=== PATIENT | male | born 1940 | race Caucasian/White ===

== ENCOUNTER 2016-08-04 08:00 | Outpatient (CLI) | payer MEDICARE, BC ==
[2016-08-04] MEDS ORDERED: BYSTOLIC5 MG PO (10:30)
[2016-08-04] MEDS ORDERED: CELEXA20 MG PO (10:30)
[2016-08-04] MEDS ORDERED: PLAVIX75 MG PO (10:31)
[2016-08-04] MEDS ORDERED: ISOSORBIDE MONO60 M1 PO (10:31)
[2016-08-04] MEDS ORDERED: LANTUS INSULIN10 ML SC (10:32)
[2016-08-04] MEDS ORDERED: NOVOLOG100 U/M1 SC (10:32)
[2016-08-04] MEDS ORDERED: SYNTHROID75 MCG PO (10:32)
[2016-08-04] MEDS ORDERED: NITROQUICK0.4 MG SL (10:33)
[2016-08-04] MEDS ORDERED: COZAAR50 MG PO (10:33)
[2016-08-04] MEDS ORDERED: RANEXA1000 MG PO (10:33)
[2016-08-04] MEDS ORDERED: CENTRUM MEN'S1 EACH PO (10:34)
[2016-08-04] MEDS ORDERED: CRESTOR20 MG PO (10:34)
[2016-08-04] MEDS ORDERED: ASPIRIN325 MG PO (10:34)
== END 2016-08-04 23:59 | disposition home or self-care (01) ==
LOC: D.PAN 08:00 → D.OPS 08-05 09:40 → EDSTATUS 08-05 09:40 → D.SDCHOLD 08-05 09:40 → D.PAN 08-05 09:40 → D.SDCHOLD 08-05 10:00 → D.OPS 08-05 10:30 → D.SDCHOLD 08-05 10:30 → D.PAN 08-17 09:40 → D.SDCHOLD 08-17 09:40 → EDSTATUS 08-17 09:40
DX: K95.09 Other complications of gastric band procedure (principal); Z01.812 Encounter for preprocedural laboratory examination

== ENCOUNTER 2016-08-17 06:02 | Inpatient (IN) | payer MEDICARE, BC ==
[~2016-08-17] VITALS: Ht 177.8 cm; Wt 114.8 kg
[2016-08-17] VITALS (11 sets, daily range): BP systolic 98–144; BP diastolic 47–65; Ht 177.8 cm; Wt 114.8 kg
--- NOTE | ~2016-08-17 | CN ---
PATIENT NAME:LIBERTY BIRMINGHAM JR MEDICAL RECORD: [id number] : 40 LOCATION:[facility] ADMIT DATE: 08/17/16 ACCOUNT: [id number] CONSULTING PHYSICIAN: LOW AKINS MD REFERRING PHYSICIAN: BRAD LIMA MD DATE OF CONSULTATION: 08/17/2016 Cardiology Consultation ADMITTING DIAGNOSES: 1. Coronary artery disease. 2. Status post coronary artery bypass graft surgery. 3. Sick sinus syndrome. 4. Status post pacemaker. 5. Mitral valve replacement. 6. Chest pain. 7. Preop evaluation. HISTORY OF PRESENT ILLNESS: This is a gentleman who is followed by scale mechanic in [place], who is here for lap band removal surgery, has been having chest pain; however, there is no change in the pattern. He does take nitro on a daily basis, approximately 4, there is no change in his pattern as well. His last cardiac catheterization was in January, he was told he had 1 close graft with wide patency of the other 3 grafts. His chest pain was felt to be esophageal in nature. His chest pain is different than his previous angina prior to his bypass surgery and the relief with nitro is different. He was told that the esophageal spasm is getting relieved with nitro; however, he takes more of them now. He does not have chest pain with exertion. He has chest pain when he lies down at night, relief with antacids or the sublingual nitro. His EKG is unchanged. PHYSICAL EXAMINATION: GENERAL APPEARANCE: Well-nourished, well-developed, appears stated age. Level of distress, comfortable. PSYCHIATRIC: Mental status, alert, normal affect. Orientation, oriented to time, place and person. EYES: Lids and conjunctiva, noninjected. No discharge, no pallor. ENT: Lips, teeth, gums, normal dentition. Oropharynx, no cyanosis, no pallor. NECK: Carotid arteries, bilateral normal upstroke, no bruits, no thrills. JUGULAR VEINS: No jugular venous pressure or distention. CERVICAL LYMPH NODES: Nontender, nonenlarged. THYROID: Not enlarged. Nontender. No nodules. LUNGS: Respiratory effort, unlabored. CHEST: Normal curvature. No thoracic deformity. No chest wall tenderness. Percussion, resonant. Auscultation, clear. No wheezes, no rales, no rhonchi. CARDIOVASCULAR: Precordial exam, nondisplaced. No heaves or pericardial thrills. Rate and rhythm, regular. Heart sounds, normal S1, normal S2. No S3, no gallop, no rub. Systolic murmur, not heard. Diastolic murmur, not heard. EXTREMITIES: No cyanosis, no edema. Peripheral pulses, full and equal in all extremities, except as noted. No bruits appreciated. ABDOMEN: Soft, nondistended. Normal aorta. No bruit. Nontender. No masses. Liver, nontender, no hepatomegaly. Spleen, nontender, no splenomegaly. MUSCULOSKELETAL: No joint tenderness. No joint swelling. No erythema. NEUROLOGICAL: Normal gait, normal strength, normal tone. SKIN: Warm and dry. CONSULT REPORT [id number] LIBERTY BIRMINGHAM JR REVIEW OF SYSTEMS: The patient reports easy bruising but reports no swollen glands. The patient reports no fever, no night sweats, no significant weight gain, no significant weight loss. No significant exercise tolerance. The patient reports no dry eyes, no irritation, no vision change. Patient reports no difficulty hearing and no ear pain. Patient reports no frequent nose bleeds or nose and sinus problems. Patient reports on arm pain on exertion. No shortness of breath while lying down. No history of heart murmur. Patient reports no cough, no wheezing or coughing up blood. Patient reports no abdominal pain, no vomiting. Normal appetite. No diarrhea and not vomiting blood. No nausea and no constipation. Patient reports no incontinence. No difficulty urinating. No hematuria. No increased frequency. Patient reports no muscle aches. No weakness, no arthralgias, no back pain. No swelling of the extremities. Patient reports no abnormal mole, no jaundice, no rashes. Reports no loss of consciousness. No weakness and no numbness. No seizures, dizziness, or headaches. The patient reports no depression, no sleep disturbance, feeling safe in a relationship and no alcohol abuse. Patient reports on fatigue. Reports no runny nose or sinus pressure. No itching, no hives, and no frequent sneezing. OVERALL IMPRESSION: Chest pain, it is more compatible gastroesophageal reflux disease, not compatible with his previous angina, stable pattern since his catheterization in January when no intervention was needed. At this time, I think he is relatively low risk for surgery. Proceed with surgery with no other cardiovascular workup necessary. TRANSINT:[id number] Voice Confirmation ID: [id number] DOCUMENT ID: [id number] LOW AKINS MD CC: [id number] DICTATION DATE: 08/17/16945 CORN MILLER: 08/17/161915 ADM IN [place] [address] [place] [address]
[~2016-08-17 06:02] MED LIST: ASPIRIN325 MG PO; BYSTOLIC5 MG PO; CELEXA20 MG PO; CENTRUM MEN'S1 EACH PO; COZAAR50 MG PO; CRESTOR20 MG PO; ISOSORBIDE MONO60 M1 PO; LANTUS INSULIN10 ML SC; NITROQUICK0.4 MG SL; NOVOLOG100 U/M1 SC; PLAVIX75 MG PO; RANEXA1000 MG PO; SYNTHROID75 MCG PO
[2016-08-17 08:04] LABS: BASOPHILS 0.3 % (0-2); EOSINOPHILS 4.2 % (0-7); HEMATOCRIT 38.9 % (42.0-54.0); HEMOGLOBIN 12.6 g/dL (13.5-17.5); IMMATURE GRANULOCYTES 0.4 % (0-5); LYMPHOCYTES 20.2 % (15-50); MCH 31.5 pg (26.0-34.0); MCHC 32.4 g/dL (31.0-37.0); MCV 97.3 fL (80.0-100.0); MEAN PLATELET VOLUME 9.8 fL (7.4-10.4); MONOCYTES 10.4 % (2-11); NEUTROPHILS 64.5 % (40-80); PLATELET COUNT 157 10x3/uL (130-400); RDW 13.5 % (11.5-14.5); WBC 7.7 10x3/uL (4.8-10.8)
[2016-08-17 08:14] LABS: ANION GAP 14.5 mmol/L (8-16); APTT 29.4 SECONDS (22.8-39.4); CALCIUM 9.1 mg/dL (8.5-10.1); CARBON DIOXIDE 22.9 mmol/L (21.0-32.0); CREATININE - SERUM 2.7 mg/dL (0.6-1.3); INR 1.06 (0.85-1.17); POTASSIUM - SERUM 5.4 mmol/L (3.5-5.1); PROTIME 13.7 SECONDS (11.6-15.0)
--- NOTE | 2016-08-17 11:48 | NUR ---
FSBS 128MG/DL
[2016-08-17] MEDS ORDERED: HYDROCODON-ACE1 EAC7 PO (21:14)
--- NOTE | 2016-08-17 22:45 | NUR ---
REC'D PATIENT LYING IN BED. ALERT AND ORIENTED X4. DENIED PAIN AT THIS TIME. DENIED FURTHER NEEDS AT THIS TIME. INSTRUCTED HIM THAT HE HAD TO GET UP TO WALK BEFORE BED. VERBALIZED UNDERSTANDING. WILL CONT TO MONITOR. WILL ADMIN PM MEDS PRESCRIBED. INSTRUCTED TO CALL IF NEEDED ANYTHING. BED LOW, LOCKED, CALL LIGHT IN REACH.
--- NOTE | 2016-08-18 02:00 | NUR ---
PT IN BED WITH NO DISTRESS. RESPIRATIONS EVEN AND UNLABORED. SIDE RAILS X 2. BED LOW. CALL LIGHT IN REACH.
--- NOTE | 2016-08-18 03:25 | NUR ---
PATIENT IS RESTING IN BED. NO DISTRESS NOTED. INSTRUCTED TO CALL IF NEEDED ANYTHING. BED LOW, LOCKED CALL LIGHT IN REACH. WILL CONT TO MONITOR.
[2016-08-18 04:00] VITALS: BP 117/48
[2016-08-18 05:07] LABS: BASOPHILS 0.1 % (0-2); EOSINOPHILS 2.7 % (0-7); HEMATOCRIT 38.4 % (42.0-54.0); HEMOGLOBIN 12.5 g/dL (13.5-17.5); IMMATURE GRANULOCYTES 0.3 % (0-5); LYMPHOCYTES 9.6 % (15-50); MCH 31.7 pg (26.0-34.0); MCHC 32.6 g/dL (31.0-37.0); MCV 97.5 fL (80.0-100.0); MEAN PLATELET VOLUME 9.7 fL (7.4-10.4); MONOCYTES 6.9 % (2-11); NEUTROPHILS 80.4 % (40-80); PLATELET COUNT 162 10x3/uL (130-400); RBC 3.94 10x6/uL (4.20-6.10); RDW 13.7 % (11.5-14.5)
[2016-08-18 05:12] LABS: WBC 10.5 10x3/uL (4.8-10.8)
[2016-08-18 05:21] LABS: ANION GAP 16.2 mmol/L (8-16); CALCIUM 8.8 mg/dL (8.5-10.1); CARBON DIOXIDE 20.1 mmol/L (21.0-32.0); CREATININE - SERUM 2.5 mg/dL (0.6-1.3); POTASSIUM - SERUM 5.3 mmol/L (3.5-5.1)
--- NOTE | 2016-08-18 07:27 | NUR ---
Patient Name: LIBERTY BIRMINGHAM Admission Status: Elective Accout number: [id number] Admission Date: 08-17-2016 : 1940 Admission Diagnosis: Attending: FLAQUITA Current LOS: 1 Anticipated DC Date: 08-18-2016 Planned Disposition: Home Primary Insurance: MEDICARE A & B Discharge Planning Comments: CM MET WITH PATIENT REGARDING D/C NEEDS AND PLANS. PATIENT STATED HE IS DISCHARGING TODAY AND HIS (NIKHIL) WILL DRIVE HIM HOME. PATIENT STATED HE HAS A CHAIR LIFT TO ENTER HIS HOME AND NO STAIRS INSIDE. PATIENT STATED HE IS INDEPENDENT WITH HIS CARE AND HAS A WALKER, CPAP, OXYGEN PRN, AND GLUCOMETER AT HOME. PATIENTS PCP IS DR. CALLAHAN AND PHARMACY IS [facility] [address]. PATIENT DENIED HOME HEALTH OR ANY OTHER NEEDS FOR DISCHARGE. CM WILL CONTINUE TO FOLLOW PATIENT WITH D/C NEEDS AND PLANS. PCP DR. SINDY [facility] [address] [phone] NIKHIL () [phone] Radio Installer: Maricruz Campuzano Is the patient Alert and Oriented? Yes 0 * How many steps to enter\exit or inside your home? chair lift 0 * PCP DR. CALLAHAN 0 * Pharmacy [facility] [address] 0 * Preadmission Environment Home with Family 0 * ADLs Independent 0 * List name and contact numbers for known caregivers / representatives who currently or will assist patient after discharge: TORI CAMEJO (SPOUSE) [phone] 0 * Community resources currently utilized None 0 * Additional services required to return to the preadmission environment? Yes 0 * Can the patient safely return to the preadmission environment? Yes 0 * Has this patient been hospitalized within the prior 30 days at any hospital? No 0 Grand Total: 0
--- NOTE | 2016-08-18 07:45 | NUR ---
PT AWAKE AND ALERT ORINETED X 3 LUNGS CLAER BIALTERALLY FOR GASTROGRAFIN SWALLOW POST OP TODAY THEN D/C TO HOME SELF CARE.
--- NOTE | 2016-08-18 08:46 | OP ---
PATIENT NAME: LIBERTY BIRMINGHAM JR MEDICAL RECORD: [id number] :40 LOCATION:[facility] ADMISSION DATE:08/17/16 SURGEON: BRAD LIMA MD DATE OF OPERATION: 08/17/2016 SURGEON: Brad Lima M.D. PREOPERATIVE DIAGNOSES: 1. 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 2. History of laparoscopic gastric banding. 3. Coronary artery disease. 4. Type 2 diabetes. 5. Hypertension. 6. Chronic kidney disease. POSTOPERATIVE DIAGNOSES: 1. 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 2. History of laparoscopic gastric banding. 3. Coronary artery disease. 4. Type 2 diabetes. 5. Hypertension. 6. Chronic kidney disease. PROCEDURE PERFORMED: Laparoscopic removal of gastric band and subcutaneous port. ANESTHESIA: General. COMPLICATIONS: None. SPECIMENS: Gastric band and port. Case was clean. ESTIMATED BLOOD LOSS: 20 cc. OPERATIVE COURSE: After consent was obtained, the patient was taken to the operating room and placed in the supine position on the operative table. Next, general anesthesia was given via endotracheal intubation. After a timeout was performed that confirmed the correct patient and procedure, the abdomen was then prepped and draped in typical sterile fashion. Local anesthetic was injected just above the umbilicus. A stab incision was made with an 11-blade scalpel. Using a 5-mm bladeless optical trocar, the abdomen was entered under direct laparoscopic vision. Adequate pneumoperitoneum was achieved. The abdominal cavity was inspected. No evidence of bowel injury. No evidence of bleeding. The patient was then placed in the steep reverse Trendelenburg position. All remaining trocars were placed after the administration of local anesthetic. Two 5-mm trocars were placed into the right lateral quadrant. Under direct laparoscopic vision, Ray liver retractor was placed in the subxiphoid position. Under direct laparoscopic vision, the left lobe of liver was elevated exposing the gastroesophageal junction. The scar tissue around the gastric band was taken down with a combination of electrocautery and scissor dissection. The tract was opened in its entirety. The gastric band was unhooked, it was easily removed. All remaining adhesions were taken down to reestablish normal anatomy of the stomach. The adhesions were taken off the diaphragmatic crura and the OPERATIVE REPORT [id number] LIBERTY BIRMINGHAM JR greater curvature and cardia were placed in their anatomical lateral position. The abdominal cavity was inspected. No evidence of bowel injury. No evidence of bleeding. The area was then copiously irrigated and suctioned. There was no evidence of bleeding. The port was placed into the left lateral quadrant. At this time, the skin incision was made in the left upper quadrant at the site of the palpable subcutaneous port. Dissection continued to the level of the port. The port was dissected using electrocautery. Sutures were removed. The fascia was then opened with electrocautery. The muscles were split with a blunt hemostat. The peritoneum was grasped and opened with Metzenbaum scissors. At this time, the port and the gastric band were both removed in its entirety and sent for permanent pathology. The peritoneum was closed with a #1 Prolene. The external oblique fascia was closed with a #1 Prolene. Skin was closed with 4-0 Stratafix. At this time, the camera was reinserted, pneumoperitoneum was reobtained. The air was inspected. There was no evidence of bleeding and no evidence of bowel injury. The Ray liver retractor was removed. At this time, the abdominal cavity was inspected. No evidence of bowel injury. No evidence of bleeding. At this time, all remaining instruments were removed. The abdomen was desufflated. Trocars were removed. Skin was closed with 4-0 Stratafix. At the end of the case, all needle and instrument counts were correct. No complications occurred. The patient was extubated and transferred to the PACU in stable condition. TRANSINT:[id number] Voice Confirmation ID: [id number] DOCUMENT ID: [id number] BRAD LIMA MD at 0846 CC: [id number] DICTATION DATE: 08/17/16 1120 EMAIL ENGINEER: 08/17/162 ADM IN [place] [id number] [place] [address]
--- NOTE | 2016-08-18 10:15 | NUR ---
PT GIVEN ALL DISCHARGE INSTRUCTIONS STATESD UNDERSTANDING PIV DISCONTINUED, ALL WRITTEN RX GIVEN LEFT VIA WHEELCHAIR WITH APOUSE AT SIDE.
--- NOTE | 2016-08-18 10:15 | NUR ---
DC'D HOME WITH FAMILY. ESCORTED TO VEHICLE BY VOLUNTEER VIA WC WITH BELONGINGS.
== END 2016-08-18 11:19 | disposition home or self-care (01) | DRG 989 ==
LOC: D.MS 06:02 → D.SDCHOLD 06:02 → D.MS 11:34
PROVIDERS: Anesthesiology; ADMIT Surgery
PROC: 0JPT0XZ Removal of Tunneled Vascular Access Device from Trunk Subcutaneous Tissue and Fascia, Open Approach (ICD-10-PCS; 2016-08-17)
PROC: 0DP64CZ Removal of Extraluminal Device from Stomach, Percutaneous Endoscopic Approach (ICD-10-PCS; principal; 2016-08-17 10:30)
DX: K95.09 Other complications of gastric band procedure (principal); I25.10 Atherosclerotic heart disease of native coronary artery without angina pectoris; I12.9 Hypertensive chronic kidney disease with stage 1 through stage 4 chronic kidney disease, or unspecified chronic kidney disease; E11.22 Type 2 diabetes mellitus with diabetic chronic kidney disease; N18.9 Chronic kidney disease, unspecified; Z79.4 Long term (current) use of insulin; Z95.1 Presence of aortocoronary bypass graft; Z95.0 Presence of cardiac pacemaker; K21.9 Gastro-esophageal reflux disease without esophagitis; Z95.2 Presence of prosthetic heart valve

== ENCOUNTER → 2016-10-06 08:29 | Outpatient (CLI) | payer MEDICARE, BC ==
[~2016-10-06 08:29] MED LIST changes: +HYDROCODON-ACE1 EAC7 PO
--- NOTE | 2016-10-06 10:57 | NUR ---
Nutrition education for bariatric surgery: S: Pt recently had a lap band removed due to it causing health issues. Pt lost 73# and was able to keep the weight off for ~10 years with the lap band. Pt reports he has gained 18# since having the band removed in August. Pt does not exercise due to CAD. Pt reports he drinks about 5 mixed drinks every evening with his and is very upset with me when I told him no alcohol after gastric sleeve surgery. Pt also reports buying donuts every other day because he and his like them. Pt smokes 1 cigar every evening also. O: 75 year old male PMH: CAD s/p CABG, stents Ht: 5'10" Wt: 256# IBW: 166# +/-10% BMI: 36.7 A: Reviewed pre/post of diet; reviewed sample menus; liquids between meals; no alcohol; 3 ounce meal size; no straws, no carbonation; protein needs and protein supplements; daily vitamin supplements; no sweets or high fat foods; pouch stretching; eating out. Pt interview reveals pt drinks a lot of alcohol on a daily basis and pt is not happy at the thought of having to give it up! Pt also is eating quite a bit of sugary foods as evidenced by his gaining 18# so fast after lap band removal. Pts goal weight post-surgery is ~225# which is realistic; however, I am not sure pt is willing to make the necessary dietary changes needed to be successful with long-term weight loss. RDN feels pt motivation for change is fair at best. P: Provided pt with printed diet information and RDN name and phone number. RDN will be available if needed. Thank you for the consult.
== END ==
LOC: D.FANS 08:29
DX: Z01.818 Encounter for other preprocedural examination (principal)

== ENCOUNTER 2016-11-23 05:48 | Day surgery (SDC) | payer MEDICARE, BC ==
[~2016-11-23] VITALS: Ht 177.8 cm; Wt 120.5 kg
[~2016-11-23 05:48] MED LIST changes: -ASPIRIN325 MG PO; +BAYER CHEWABLE81 MG PO
[2016-11-23] MEDS ORDERED: VICTOZA0.6 MG/0.1 SQ (06:45)
[2016-11-23] MEDS ORDERED: PROTONIX40 MG PO (06:46)
[2016-11-23 07:06] LABS: BASOPHILS 0.4 % (0-2); EOSINOPHILS 4.3 % (0-7); HEMATOCRIT 38.3 % (42.0-54.0); HEMOGLOBIN 12.7 g/dL (13.5-17.5); IMMATURE GRANULOCYTES 0.2 % (0-5); LYMPHOCYTES 23.1 % (15-50); MCH 30.8 pg (26.0-34.0); MCHC 33.2 g/dL (31.0-37.0); MEAN PLATELET VOLUME 9.8 fL (7.4-10.4); PLATELET COUNT 165 10x3/uL (130-400); RBC 4.12 10x6/uL (4.20-6.10); RDW 13.4 % (11.5-14.5); WBC 8.3 10x3/uL (4.8-10.8)
[2016-11-23 07:08] VITALS: BP 150/73; Ht 177.8 cm; Wt 120.5 kg
[2016-11-23 07:17] LABS: ANION GAP 14.6 mmol/L (8-16); CALCIUM 8.9 mg/dL (8.5-10.1); CARBON DIOXIDE 24.3 mmol/L (21.0-32.0); CREATININE - SERUM 1.8 mg/dL (0.6-1.3); POTASSIUM - SERUM 4.9 mmol/L (3.5-5.1)
--- NOTE | 2016-11-23 09:08 | NUR ---
0855- PT SITTING UP WITH HOB ELEVATED. FULL LIQUIDS OFFERED. AT BEDSIDE. HAS SPOKE WITH ABOUT PROCEDURAL FINDINGS. WILL MONITOR.
--- NOTE | 2016-11-23 11:55 | NUR ---
0935- IV D/C'D, PT TOLERATED. CATHETER INTACT. 0940- DISCHARGE INSTRUCTIONS GIVEN, PT VERBALIZED UNDERSTANDING. PAPERWORK COMPLETED. 0986- PT D/C'D VIA WHEELCHAIR WITH .
== END 2016-11-23 09:45 | disposition home or self-care (01) ==
LOC: D.OPS 05:48
PROVIDERS: Anesthesiology
DX: T85.590A Other mechanical complication of bile duct prosthesis, initial encounter (principal); I25.10 Atherosclerotic heart disease of native coronary artery without angina pectoris; E11.22 Type 2 diabetes mellitus with diabetic chronic kidney disease; I12.9 Hypertensive chronic kidney disease with stage 1 through stage 4 chronic kidney disease, or unspecified chronic kidney disease; N18.9 Chronic kidney disease, unspecified; F17.200 Nicotine dependence, unspecified, uncomplicated; G47.30 Sleep apnea, unspecified; K21.9 Gastro-esophageal reflux disease without esophagitis; Z95.1 Presence of aortocoronary bypass graft; Z95.5 Presence of coronary angioplasty implant and graft; E03.9 Hypothyroidism, unspecified; Z98.84 Bariatric surgery status; Z01.812 Encounter for preprocedural laboratory examination

== ENCOUNTER 2017-03-29 05:41 | Inpatient (IN) | payer MEDICARE, BC ==
[~2017-03-29] VITALS: Ht 177.8 cm; Wt 75.0 kg
--- NOTE | ~2017-03-29 | HEMODYNAMI ---
PATIENT:LIBERTY BIRMINGHAM JR MEDICAL RECORD: [id number] : 40 [facility] [place] [facility] ADMISSION DATE: 03/29/17 Generatedon:03/31/201715:05 Patient name: LIBERTY BIRMINGHAM Patient #: [id number] SSN: DO B: 1940 Date of study: 03/31/2017 Page: Of Hemodynamic Procedure Report Patient Data Patient Demographics Procedure consent was obtained First Name: LIBERTY Gender: Male Last Name: VINNIE Suffix: [facility] Initial: Karl : 1940 Patient #: [id number] Age: 76 year(s) Race: Unknown Additional ID: [id number] Contact details Address: [address] [place] [address] State: [place] City: [place] Zip code: [address] Admission Admission Data Admission Date: 03/29/2017 Admission Time: 12:30 Room #: 2204 Procedure Procedure Types Cath Procedure Peripheral Cath Diagnostic Procedure Miscellaneous Procedure Description Procedure Date Procedure Date: 03/31/2017 Procedure Start Time: 14:20 Procedure Staff Name Function Musa Adams MD Performing Physician Edgardo John RT Monitor Rhea Langley RN Nurse Yarely Kinney RT Scrub Procedure Data Cath Procedure Fluoroscopy Diagnostic fluoroscopy Total fluoroscopy Time: 4.6 time: 4.6 min min Diagnostic fluoroscopy Total fluoroscopy dose: dose: 1051 mGy 1051 mGy Contrast Material Contrast Material Type Amount (ml) Isovue 300 90 Entry Location Entry Primary Successful Side Size Upsize Upsize Entry Closure Succes sful Closure Location (Fr) 1 (Fr) 2 (Fr) Remarks Device Remarks Femoral Right 5 Fr Exoseal artery Diagnostic catheters Device Type Used For End Catheter Placement Merit ULTRA BOLUS FLUSH 5Fr 90CM catheter ([id number]) Procedure Medications Medication Administration Route Dosage Lidocaine 1% added to field 20 Heparin Flush Bag added to field 2 bags (1000units/500ml NS) Heparin Flush Bag added to field 1 bags (1000units/500ml NS) Versed I.V. 0.5 mg Fentanyl I.V. 25 mcg Versed I.V. 0.5 mg Fentanyl I.V. 25 mcg Hemodynamics Rest Heart Rate: 63 (bpm) Snapshots Pre Cath Intra NCS Post Cath Vital Signs Time Heart Resp SPO2 etCO2 NIBP (mmHg) Rhythm Pain Sedation Rate (ipm) (%) (mmHg) Status Level (bpm) 14:10:00 60 14 100 28.8 177/72(139) NSR 0 (11) 10(A) , No pain 14:14:59 60 10 100 28 Measuring NSR 0 (11) 10(A) , No pain 14:15:40 60 14 99 28 190/98(138) NSR 0 (11) 10(A) , No pain 14:20:17 14 99 30.2 169/86(142) NSR 0 (11) 10(A) , No pain 14:25:16 59 14 98 28 Measuring NSR 0 (11) 10(A) , No pain 14:25:46 63 14 98 31.8 169/73(145) NSR 0 (11) 10(A) , No pain 14:30:21 63 14 98 31.8 170/78(134) NSR 0 (11) 10(A) , No pain 14:34:51 62 14 97 28.7 172/78(144) NSR 0 (11) 10(A) , No pain 14:39:26 59 8 99 28 165/67(120) NSR 0 (11) 10(A) , No pain 14:44:00 62 13 99 28 181/77(139) NSR 0 (11) 10(A) , No pain 14:48:33 63 16 100 25.7 172/75(130) NSR 0 (11) 10(A) , No pain 14:53:07 60 10 98 32.5 166/75(137) NSR 0 (11) 10(A) , No pain 14:58:06 64 15 98 30.2 Measuring NSR 0 (11) 10(A) , No pain 14:58:31 63 12 97 31.8 164/70(124) NSR 0 (11) 10(A) , No pain 15:03:03 60 12 98 31 179/77(149) NSR 0 (11) 10(A) , No pain Medications Time Medication Route Dose Verified Delivered Reason Notes Effect iveness by by 13:55:55 Lidocaine 1% added 20ml to vial field 13:56:03 Heparin Flush added 2 Bag to bags (1000units/500ml field NS) 13:56:07 Heparin Flush added 1 Bag to bags (1000units/500ml field NS) 14:23:27 Versed I.V. 0.5 Musa Wilkerson for mg BurdaShivam RN sedation 14:23:38 Fentanyl I.V. 25 Musa Wilkerson for mcg BurdaShiavm RN sedation 14:41:19 Versed I.V. 0.5 Musa Wilkerson for mg BurdaShivam RN sedation 14:41:26 Fentanyl I.V. 25 Musa Wilkerson for mcg LeviaShivam RN sedation Procedure Log Time Note 13:55:17 Edgardo John RT (R) (CV) sent for patient. Start room use. 13:55:27 Time tracking: Regular hours 13:55:32 Plan of Care:Hemodynamics will remain stable., Cardiac rhythm will remain stable., Comfort level will be maintained., Respiratory function will remain adequate., Patient/ family verbilizes understanding of procedure., Procedure tolerated without complication., Recovers from procedure without complications.. 13:55:38 Use device set IR Diagnostic 13:55:39 Sterile Angiographic Pack opened to sterile field. 13:55:39 Bag Decanter (2001S) opened to sterile field. 13:55:40 ACIST Manifold (54403) opened to sterile field. 13:55:40 ACIST Hand Control (27100) opened to sterile field. 13:55:41 ACIST Syringe (83106) opened to sterile field. 13:55:55 Lidocaine 1% 20ml vial added to field was administered by ; ; 13:56:03 Heparin Flush Bag (1000units/500ml NS) 2 bags added to field was administered by ; ; 13:56:07 Heparin Flush Bag (1000units/500ml NS) 1 bags added to field was administered by ; ; 13:56:16 Patient received from Med/Surg to IR Alert and oriented. Tansferred to table in Supine position. 13:56:17 Correct patient and procedure confirmed by team. 13:56:18 Signed procedure consent form obtained from patient. 13:56:19 ECG and BP/O2 sat monitors applied to patient. 13:56:20 Full Disclosure recording started 13:56:21 - 13:56:25 H&P Date Dictated: 03/31/2017 Within 30 days and on chart.. 13:56:26 Pre-procedure instructions explained to patient. 13:56:27 Pre-op teaching completed and patient verbalized understanding. 13:56:28 Family in waiting room. 13:56:30 Patient NPO since Midnight. 13:56:35 Is the patient allergic to Iodine/contrast media? No. 13:56:48 Is patient on blood thinner?No 13:56:50 Patient diabetic? Yes. 13:56:51 If diabetic: On Metformin? No 13:56:55 - 13:56:55 ----Pre-sedation anethsthesia assessment.---- 13:56:59 Previous problem with sedation/anesthesia? No ? 13:57:01 Snore? Yes 13:57:03 Sleep apnea? Yes 13:57:05 Deviated septum? No 13:57:09 Opens mouth fully? Yes 13:57:11 Opens mouth fully? Yes 13:57:13 Sticks out tongue? Yes 13:57:15 Airway obstruction? No ? 13:57:17 Dentures? No ? 13:57:18 - 13:57:21 Pre procedure: right dorsailis pedis pulse Doppler 13:57:24 Pre procedure: left dorsailis pedis pulse Doppler 13:57:27 Pre procedure: right posterior tibial pulse Doppler 13:57:32 Pre procedure: right posterior tibial pulse 2+ Normal; easily identifiable; not easily obliterated 13:57:34 Pre procedure: left posterior tibial pulse Doppler 13:57:40 Sharps counted by scrub and verified by R.N. 13:57:40 Alarms reviewed by R. N. 13:57:44 Right groin area was prepped with chlora-prep and draped in sterile fashion 14:00:47 IV patent on arrival in left forearm with 0.9% NaCl at [facility]. 14:08:31 Vital chart was started 14:08:32 Baseline sample Acquired. 14:20:17 --------ALL STOP TIME OUT------ 14:20:17 Final Timeout: patient, procedure, and site verified with staff and physician. All members of the team are in agreement. 14:20:19 Right groin site verified by team. 14:20:25 Sedation plan: IV Moderate Sedation Medication:Versed, Fentanyl 14:20:37 Procedure started. 14:20:42 Local anesthetic to right femoral artery with Lidocaine 1% by Musa Adams MD.INITIAL ACCESS ONLY 14:22:02 DOC .035 wire (C16761) opened to sterile field. 14:22:03 SHEATH 5FR Hickman (OPW243) opened to sterile field. 14:22:03 Micropuncture VSI 4FR kit opened to sterile field. 14:22:04 TUBING Contrast Injection High Pressure (RFJ773V) opened to sterile field. 14:22:06 A [employer] ULTRA BOLUS FLUSH 5Fr 90CM catheter ([id number]) was advanced over the wire and used for . 14:22:20 A 5 Fr sheath was inserted into the Right Femoral artery 14:23:27 Versed 0.5 mg I.V. was administered by Rhea Langley RN; for sedation; 14:23:38 Fentanyl 25 mcg I.V. was administered by Rhea Langley RN; for sedation ; 14:32:07 PAULSON 180cm wire (X57374) opened to sterile field. 14:40:31 GLIDE WIRE ANGLE 260cm (CF8726) opened to sterile field. 14:40:31 GLIDE CATHETER 5FR ANGLED 100cm (CG508) opened to sterile field. 14:40:56 TORQUE DEVICE PLASTIC .038 ( TD01) opened to sterile field. 14:41:19 Versed 0.5 mg I.V. was administered by Rhea Langley RN; for sedation; 14:41:26 Fentanyl 25 mcg I.V. was administered by Rhea Langley RN; for sedation ; 14:55:59 EXOSEAL 5Fr (EX500) opened to sterile field. 14:56:13 Sheath removed intact; hemostasis achieved with Exoseal to the Right Femoral artery. 14:56:16 Procedure ended.(Physican Out) 14:56:36 Fluoroscopy time 04.60 minutes. 14:56:41 Fluoroscopy dose: 1051 mGy 14:56:41 Flurop Dose total: 1051 14:57:35 Contrast amount:Isovue 300 90ml. 14:57:38 Sharps counted by scrub and verified by R.N. 14:57:42 Post-op/insertion site Right Femoral artery dressed using a 4 x 4 and Tegaderm. 14:57:44 Post Procedure Pulses reassessed and unchanged 14:57:48 Post procedure instruction explained to patient.Patient verbalizes understanding. 15:02:04 Procedure and supply charges have been captured, reviewed, submitted an d are correct. 15:03:28 Report given to Med/Surg. 15:03:40 Patient transfered to Med/Surg with Bed. 15:05:45 Vital chart was stopped Device Usage Item Name Manufacture Quantity Catalog Number Hospital Part Current [facility] Lot# / Charge Number Stock Stock Serial# Code Sterile Cardinal 1 [id number] 200045 [id number] 5 Angiographic Health Pack Bag Decanter Microtek 1 [id number] 65181 463562 5 () Medical Inc. ACIST Manifold Acist 1 43435 513863 996495 101889 5 (47467) Medical Systems Inc ACIST Hand Acist 1 50119 701710 529448 652658 5 Control Medical (78615) Systems Inc ACIST Syringe Acist 1 37540 662824 079901 854359 20 (64821) Medical Systems Inc DOC .035 wire Cook Medical 1 [id number] 449906 356199 5 [id number] (I52619) SHEATH 5FR Terumo 1 QMR408 319512 245977 319329 40 Hickman (STT552) Micropuncture VSI VASCULAR 1 7266V 739489 902085 5 VSI 4FR kit SOLUTIONS TUBING Merit 1 [id number] 879244 471665 795823 5 Contrast Medical Injection High Pressure (WWZ235D) Merit ULTRA Merit 1 [id number] 316132 323437 5 BOLUS FLUSH Medical 5Fr 90CM catheter ([id number]) PAULSON 180cm Cook Medical 1 X40033 549736 875492 5 0693306 wire (Z44875) GLIDE WIRE Terumo 1 YX8219 395079 820031 898585 5 ANGLE 260cm (NN0771) GLIDE CATHETER Terumo 1 CG508 107883 82218 265825 4 5FR ANGLED 100cm (CG508) TORQUE DEVICE Stockbridge 1 TD01 122636 266981 684382 5 PLASTIC .038 ( Scientific TD01) EXOSEAL 5Fr Cardinal 1 EX500 590591 281832 778809 10 [id number] (EX500) Health Signature Audit [place] Stage Time Signature Unsigned Intra-Procedure 03/31/2017 dEgardo 3:05:42 PM Shuffield RT (R) (CV) Signatures Monitor : Edgardo Signature : Familiaield RT Date : Time : [address] [address]
[~2017-03-29 05:41] MED LIST changes: +BYSTOLIC10 MG PO; -BYSTOLIC5 MG PO; +PROTONIX40 MG PO; +VICTOZA0.6 MG/0.1 SQ
[2017-03-29] MEDS ORDERED: NITRO-DUR0.4 MG TRANSDERM (06:18)
[2017-03-29 06:49] VITALS: BP 145/63; BMI 23.7
[2017-03-29 06:59] LABS: BASOPHILS 0.3 % (0-2); EOSINOPHILS 4.5 % (0-7); HEMATOCRIT 35.2 % (42.0-54.0); HEMOGLOBIN 11.2 g/dL (13.5-17.5); IMMATURE GRANULOCYTES 0.3 % (0-5); LYMPHOCYTES 16.5 % (15-50); MCH 30.5 pg (26.0-34.0); MCHC 31.8 g/dL (31.0-37.0); MCV 95.9 fL (80.0-100.0); MEAN PLATELET VOLUME 9.6 fL (7.4-10.4); MONOCYTES 8.6 % (2-11); NEUTROPHILS 69.8 % (40-80); PLATELET COUNT 154 10x3/uL (130-400); RBC 3.67 10x6/uL (4.20-6.10); RDW 14.7 % (11.5-14.5); WBC 9.7 10x3/uL (4.8-10.8)
[2017-03-29 07:00] LABS: ANION GAP 14.6 mmol/L (8-16); CALCIUM 8.9 mg/dL (8.5-10.1); CARBON DIOXIDE 25.3 mmol/L (21.0-32.0); CREATININE - SERUM 2.3 mg/dL (0.6-1.3); POTASSIUM - SERUM 4.9 mmol/L (3.5-5.1)
[2017-03-29 07:24] LABS: INR 1.01 (0.85-1.17); PROTIME 12.7 SECONDS (11.6-15.0)
[2017-03-29 07:33] LABS: APTT 28.7 SECONDS (22.8-39.4)
[2017-03-29 12:47] VITALS: BP 148/60; BMI 23.7
[2017-03-29 13:26] VITALS: Ht 177.8 cm; Wt 75.0 kg
[2017-03-29 16:17] VITALS: BP 153/66
[2017-03-29 22:34] VITALS: BP 156/56
[2017-03-30 04:48] VITALS: BP 168/63
[2017-03-30 05:48] LABS: BASOPHILS 0.4 % (0-2); EOSINOPHILS 5.2 % (0-7); HEMATOCRIT 36.6 % (42.0-54.0); HEMOGLOBIN 11.6 g/dL (13.5-17.5); IMMATURE GRANULOCYTES 0.5 % (0-5); LYMPHOCYTES 21.9 % (15-50); MCH 30.6 pg (26.0-34.0); MCHC 31.7 g/dL (31.0-37.0); MCV 96.6 fL (80.0-100.0); MEAN PLATELET VOLUME 9.8 fL (7.4-10.4); MONOCYTES 10.1 % (2-11); NEUTROPHILS 61.9 % (40-80); PLATELET COUNT 158 10x3/uL (130-400); RBC 3.79 10x6/uL (4.20-6.10); RDW 14.9 % (11.5-14.5); WBC 8.4 10x3/uL (4.8-10.8)
[2017-03-30 06:13] LABS: ALBUMIN 3.3 g/dL (3.4-5.0); ANION GAP 14.4 mmol/L (8-16); BILIRUBIN - TOTAL 0.47 mg/dL (0.2-1.3); CALCIUM 9.2 mg/dL (8.5-10.1); CREATININE - SERUM 2.1 mg/dL (0.6-1.3); POTASSIUM - SERUM 4.4 mmol/L (3.5-5.1); PROTEIN - SERUM 6.8 g/dL (6.4-8.2)
[2017-03-30 08:43] VITALS: BP 164/61
[2017-03-30 12:45] VITALS: BP 158/53
[2017-03-30 21:30] VITALS: BP 179/67
[2017-03-31 01:13] VITALS: BP 150/56
[2017-03-31 05:25] VITALS: BP 158/46
[2017-03-31 05:29] LABS: BASOPHILS 0.2 % (0-2); EOSINOPHILS 4.4 % (0-7); HEMATOCRIT 37.8 % (42.0-54.0); HEMOGLOBIN 12.2 g/dL (13.5-17.5); IMMATURE GRANULOCYTES 0.4 % (0-5); LYMPHOCYTES 22.4 % (15-50); MCHC 32.3 g/dL (31.0-37.0); MCV 95.9 fL (80.0-100.0); MEAN PLATELET VOLUME 9.9 fL (7.4-10.4); MONOCYTES 8.4 % (2-11); NEUTROPHILS 64.2 % (40-80); PLATELET COUNT 176 10x3/uL (130-400); RBC 3.94 10x6/uL (4.20-6.10); RDW 14.6 % (11.5-14.5); WBC 9.1 10x3/uL (4.8-10.8)
[2017-03-31 05:48] LABS: ALBUMIN 3.6 g/dL (3.4-5.0); ANION GAP 14.4 mmol/L (8-16); BILIRUBIN - TOTAL 0.6 mg/dL (0.2-1.3); CALCIUM 9.2 mg/dL (8.5-10.1); CARBON DIOXIDE 25.9 mmol/L (21.0-32.0); POTASSIUM - SERUM 4.3 mmol/L (3.5-5.1); PROTEIN - SERUM 7.2 g/dL (6.4-8.2)
[2017-03-31 07:58] VITALS: BP 173/67
[2017-03-31 12:26] VITALS: BP 158/65
[2017-03-31 15:56] VITALS: BP 165/60
[2017-04-01 04:39] VITALS: BP 159/49
[2017-04-01 04:51] VITALS: BP 154/46
[2017-04-01 05:04] LABS: BASOPHILS 0.1 % (0-2); EOSINOPHILS 4.1 % (0-7); HEMATOCRIT 36.6 % (42.0-54.0); HEMOGLOBIN 11.9 g/dL (13.5-17.5); IMMATURE GRANULOCYTES 0.3 % (0-5); LYMPHOCYTES 17.1 % (15-50); MCH 31.2 pg (26.0-34.0); MCHC 32.5 g/dL (31.0-37.0); MCV 95.8 fL (80.0-100.0); MEAN PLATELET VOLUME 9.7 fL (7.4-10.4); MONOCYTES 10.3 % (2-11); NEUTROPHILS 68.1 % (40-80); PLATELET COUNT 158 10x3/uL (130-400); RBC 3.82 10x6/uL (4.20-6.10); RDW 14.3 % (11.5-14.5); WBC 7.9 10x3/uL (4.8-10.8)
[2017-04-01 05:15] LABS: ALBUMIN 3.4 g/dL (3.4-5.0); ANION GAP 12.8 mmol/L (8-16); BILIRUBIN - TOTAL 0.7 mg/dL (0.2-1.3); CALCIUM 8.8 mg/dL (8.5-10.1); CARBON DIOXIDE 26.6 mmol/L (21.0-32.0); CREATININE - SERUM 1.8 mg/dL (0.6-1.3); POTASSIUM - SERUM 4.4 mmol/L (3.5-5.1); PROTEIN - SERUM 6.9 g/dL (6.4-8.2)
[2017-04-01 06:31] VITALS: BP 160/49
[2017-04-01 08:35] VITALS: BP 181/69
[2017-04-19] MEDS ORDERED: PEPCID AC20 MG PO (14:47)
== END 2017-04-01 10:40 | disposition home or self-care (01) | DRG 68 ==
LOC: D.OPS 05:41 → D.SP 08:00 → D.MS 12:29 → D.OPS 12:30 → D.MS 03-30 09:55 → D.OPS 03-30 09:57 → D.MS 04-01 10:40
PROVIDERS: General Practice; Specialist
PROC: B3171ZZ Fluoroscopy of Left Internal Carotid Artery using Low Osmolar Contrast (ICD-10-PCS; principal; 2017-03-31 14:00)
DX: I65.22 Occlusion and stenosis of left carotid artery (principal); N17.9 Acute kidney failure, unspecified; I25.10 Atherosclerotic heart disease of native coronary artery without angina pectoris; K21.9 Gastro-esophageal reflux disease without esophagitis; E11.22 Type 2 diabetes mellitus with diabetic chronic kidney disease; I12.9 Hypertensive chronic kidney disease with stage 1 through stage 4 chronic kidney disease, or unspecified chronic kidney disease; N18.9 Chronic kidney disease, unspecified; Z95.1 Presence of aortocoronary bypass graft; Z95.5 Presence of coronary angioplasty implant and graft; Z95.0 Presence of cardiac pacemaker

== ENCOUNTER 2017-04-20 05:00 | Inpatient (IN) | payer MEDICARE, BC ==
[2017-04-19 16:07] LABS: HEMATOCRIT 36.6 % (42.0-54.0); MCH 31.3 pg (26.0-34.0); MCHC 32.8 g/dL (31.0-37.0); MCV 95.6 fL (80.0-100.0); MEAN PLATELET VOLUME 8.9 fL (7.4-10.4); RBC 3.83 10x6/uL (4.20-6.10); RDW 13.5 % (11.5-14.5); WBC 9.9 10x3/uL (4.8-10.8)
[2017-04-19 16:19] LABS: APPEARANCE CLEAR (CLEAR); APTT 29.5 SECONDS (22.8-39.4); BILIRUBIN NEGATIVE (NEGATIVE); COLOR YELLOW (YELLOW); GLUCOSE NEGATIVE (NEGATIVE); INR 1.08 (0.85-1.17); KETONE NEGATIVE (NEGATIVE); NITRITE NEGATIVE (NEGATIVE); PROTEIN TRACE mg/dL (NEGATIVE); PROTIME 13.6 SECONDS (11.6-15.0); SPECIFIC GRAVITY 1.015 (1.005-1.020); UROBILINOGEN NORMAL (NORMAL)
[2017-04-19 16:54] LABS: ALBUMIN 3.5 g/dL (3.4-5.0); ANION GAP 14.3 mmol/L (8-16); BILIRUBIN - TOTAL 0.4 mg/dL (0.2-1.3); CALCIUM 8.9 mg/dL (8.5-10.1); CARBON DIOXIDE 27.6 mmol/L (21.0-32.0); CREATININE - SERUM 1.9 mg/dL (0.6-1.3); POTASSIUM - SERUM 4.9 mmol/L (3.5-5.1)
[~2017-04-20] VITALS: Ht 177.8 cm; Wt 119.1 kg
[2017-04-20] VITALS (49 sets, daily range): BP systolic 119–145; BP diastolic 39–99; BMI 38.1
--- NOTE | ~2017-04-20 | OP ---
PATIENT NAME: LIBERTY BIRMINGHAM JR MEDICAL RECORD: [id number] :40 LOCATION:[facility] D.CV02 ADMISSION DATE:04/20/17 SURGEON: ALPHONSO PARIKH MD DATE OF OPERATION: 04/20/2017 SURGEON: Alphonso Parikh MD ANESTHESIA: General endotracheal. ANESTHESIOLOGIST: Sage Cason MD OPERATION PERFORMED: Left carotid endarterectomy with patch angioplasty. PREOPERATIVE DIAGNOSIS: Severe left internal carotid artery stenosis. POSTOPERATIVE DIAGNOSIS: Severe left internal carotid artery stenosis. INDICATION FOR OPERATION: Severe left internal carotid artery stenosis. FINDINGS AT OPERATION: Severe left internal carotid artery stenosis. There were no EEG changes with clamping or unclamping of the carotid artery. ESTIMATED BLOOD LOSS: Less than 100 cc. DESCRIPTION OF PROCEDURE: After informed consent, adequate preoperative medication evaluation, the patient was brought to the operating room, placed on table in supine position. The left neck and chest were prepped and draped in a sterile field, utilizing Betadine scrub, alcohol, and Betadine solution. A Betadine-impregnated drape was also used. An oblique incision was made in the skin crease. Dissection carried down the fascia. Hemostasis maintained with electrocautery. Facial vein was identified and divided. Utilizing sharp dissection, the common carotid, internal and external carotid arteries were dissected free of surrounding structures, protecting the neurological structures. The patient was given a calculated dose of heparin, after 3 minutes, clamps were applied. After 2 minutes, no EEG changes. The arteriotomy was made and extended with Perdomo scissors. Artery underwent endarterectomy sharply. Artery underwent extensive debridement and irrigation. Utilizing a vascular patch, a running 7-0 Prolene suture, the arteriotomy was closed with patch angioplasty technique. All maneuvers to remove trapped air were performed. The clamps were removed sequentially. There were no EEG changes. The patient was given a calculated dose of protamine to reverse the heparin. Hemostasis was achieved. A #7 Francisco-Barrientos drain was left in the depth of wounds and brought through the base of the neck. Neck was again irrigated. Instrument count and sponge count were correct times 2. Neck was closed in layers utilizing 3-0 Vicryl on the platysma, 5-0 subcuticular Monocryl on the skin. Sterile dressings were applied. The patient tolerated the procedure well and was transferred to the CV ICU in satisfactory condition. TRANSINT:[id number] Voice Confirmation ID: [id number] DOCUMENT ID: [id number] OPERATIVE REPORT [id number] LIBERTY BIRMINGHAM JR, EDWARD MD at 0829 CC: [id number] DICTATION DATE: 04/20/17 1019 [employer]METICS AND TOILETR[employer] SALESPERSON: 04/20/17 1043 ADM IN [place] 217300 [place] [id number]
--- NOTE | ~2017-04-20 | HP ---
PATIENT: LIBERTY BIRMINGHAM JR MEDICAL RECORD: [id number] ACCOUNT: [id number] LOCATION:[facility] : 40 ADMISSION DATE: 04/20/17 HISTORY AND PHYSICAL EXAMINATION NameLIBERTY BIRMINGHAM (76yo, M) ID# [id number]. Date/Time04/09/2017 01:66TKIRT06/09/1941Service Dept.NPP_[place] [facility] ClinicProviderEDBRITNI PARIKH MDInsuranceMed Primary: [place] ([place]) Insurance # : [id number] Referring Provider Name : FOREST CALLAHAN Employer Name : UNKNOWN Med Secondary: [place] (MEDICARE SUPPLEMENT) Insurance # : [id number] Referring Provider Name : FOREST CALLAHAN Employer Name : UNKNOWN Prescription: DSTPSDIR - Member is eligible. Chief Complaint Followup: Carotid artery stenosis FOLLOWING CAROTID STENOSIS, RTC RESULTS OF 4 VESSEL ARTERIOGRAM W INT RAD Patient's Care Team Referring Provider (): FOREST CALLAHAN: [address] [place] [address], , Knowledge Management Consultant: BRAD HERNDON MD: [facility] [facility] [address] [address], , Patient's Pharmacies [facility] (ERX): [address] [place] [id number], , Vitals BP:118/52 sitting L arm 04/09/2017 02:08 pm 134/42 sitting R arm 04/09/2017 02:10 pmBP Cuff Size:adult 04/09/2017 02:08 pm adult 04/09/2017 02:10 pmHR:60,REG 04/09/2017 02:10 pmHt:5 ft 10.5 in 04/09/2017 02:06 pmWt:260 lbs 04/09/2017 02:10 pmNotes:NO NEW COMPLAINTS 04/09/2017 02:10 pmBMI:36.8 04/09/2017 02:10 pmAllergies Reviewed Allergies FLOMAXLISINOPRILMedications Reviewed Medications amLODIPine 5 mg nwvaxw84/21/17 filledBannerAltimetaspirin 81 mg chewable tablet Chew 1 tablet(s) every day by oral route.03/04/17 [facility] WilsonBystolic 10 mg drmolz47/01/18 filledBannerSpritz SystemsBystolic 5 mg nuqvqd82/22/17 filledBannerSpritz Systemscitalopram 20 mg xwzdaj12/02/18 filledBannerSpritz Systemsclopidogrel 75 mg azdtrj65/22/17 filledBannerSpritz Systemsfamotidine 20 mg tablet Take 1 tablet(s) twice a day by oral route.04/08/17 filledBannerAltimetisosorbide mononitrate ER 60 mg tablet,extended release 24 hr04/08/17 filledBannerus ZappyLab SystemsLantus 100 unit/mL subcutaneous dkzaafxk73/02/17 filledBannerAltimetLantus Solostar 100 unit/mL (3 mL) subcutaneous insulin pen12/26/16 filledBannerAltimetlevothyroxine 75 mcg /27/17 filledBannerAltimetlosartan 50 mg /12/18 filledBannerAltimetQgxsyfeucvkcdzmmcbc90/28/17 [facility] hospital Wilsonnitroglycerin 0.4 mg sublingual pbjjyk63/01/[address] [facility] fashionandyou.comnitroglycerin 0.4 mg/hr transdermal 24 hour patch03/23/17 filledBannerAltimetNovoLOG 100 unit/mL subcutaneous solution Inject by subcutaneous route.03/04/17 [facility] hospital Wilsonpantoprazole 40 mg tablet,delayed release HISTORY AND PHYSICAL [id number] LIBERTY BIRMINGHAM JR Take 1 tablet(s) twice a day by oral route for 30 days.01/27/17 filledSimmersion Holdings Systemspen needle, diabetic 31 gauge x 1/4"09/22/16 filledArgus Health SystemsRanexa 1,000 mg tablet,extended ytnlzcq24/01/18 filledBannerus Health SystemsRanexa 500 mg tablet,extended iytkxxg67/22/17 filledBannerSpritz Systemsrosuvastatin 20 mg ifhshr53/20/18 filledBannerAltimetVictoza 2-Asa 0.6 mg/0.1 mL (18 mg/3 mL) subcutaneous pen krewfbxn56/18/17 [facility] SystemsProblems Reviewed Problems Carotid artery stenosis - Onset: 03/23/2017, Bilateral Body mass index 30+ - obesity - Onset: 07/23/2016 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 - Onset: 07/23/2016 Gastroesophageal reflux disease - Onset: 10/29/2016 Renal disorder due to type 2 diabetes mellitus - Onset: 07/23/2016 Arteriosclerosis of carotid artery - Onset: 03/04/2017 Coronary atherosclerosis - Onset: 07/23/2016 Type II diabetes mellitus uncontrolled - Onset: 07/23/2016 Hyperlipidemia - Onset: 07/23/2016 Essential hypertension - Onset: 07/23/2016 History of bariatric surgical procedure - Onset: 07/23/2016 Family History Reviewed Family History Father- Heart disease - Cerebrovascular accidentSocial History Reviewed Social History Cardiology Family history of heart disease?: Y Smoking Status: Current every day smoker (Notes: 1 CIGAR) High Cholesterol: Y High blood pressure: Y Overweight: Y Obese: Y Diabetes: Y Alcohol intake: Moderate Surgical History Reviewed Surgical History Laparoscopy, surgical, gastric restrictive procedure; removal of adjustable gastric restrictive device component only Laparoscopy, surgical, gastric restrictive procedure; removal of adjustable gastric restrictive device component only - 08/17/2016 Other - 03/08/2015 - PACEMAKER Other - 03/08/2014 - PROSTATE SURGERY, [facility] Other - 03/08/2010 - [facility]BAND- [facility] Other - 03/08/2004 - BYPASS/VALVE REPLACEMENT, [facility] [place], [facility] BY [facility] Past Medical History Reviewed Past Medical History Cancer: Y Chest Pain: Y Coronary Artery Disease: Y Depression: Y Diabetes: Y - INSULIN GERD: Y Heart Disease: Y - HEART ATTACK Hyperlipidemia: Y HISTORY AND PHYSICAL [id number] LIBERTY BIRMINGHAM JR Hypertension: Y Hypothyroidism: Y Notes: CAD, CHEST PAIN, PACEMAKER, sleep apnea Documents for Discussion N/A Screening None recorded. HPI Cerebral Vascular Disease Reported by patient. Associated Symptoms: no headache; no nausea; no vomiting; no tinnitus; no difficulty speaking; no lethargy; no fever; no chills; no palpitations; no syncope; no loss of consciousness carotid artery disease ROS Patient reports exercise intolerance but reports no fever, no night sweats, no significant weight gain, and no significant weight loss. He reports difficulty hearing but reports no ear pain. He reports snoring but reports no sore throat, no bleeding gums, no dry mouth, no mouth ulcers, no oral abnormalities, and no teeth problems. He reports chest pain on exertion, arm pain on exertion, shortness of breath when walking, known heart murmur, and light-headed on standing but reports no shortness of breath when lying down and no palpitations. He reports depression but reports no sleep disturbances, feeling safe in relationship, and no alcohol abuse. He reports easy bruising and excessive bleeding but rep orts no swollen glands. He reports no dry eyes, no irritation, and no vision change. He reports no frequent nosebleeds and no nose/sinus problems. He reports no jugular vein distension and no swollen glands. He reports no cough, no wheezing, no shortness o f breath, and no coughing up blood. He reports no abdominal pain, no vomiting, normal appetite, no diarrhea, not vomiting blood, no nausea, and no constipation. He reports no incontinence, no difficulty urinating, no hematuria, and no increased frequency. He reports no muscle aches, no muscle weakness, no arthralgias/joint pain, no back pain, and no swelling in the extremities. He reports no abnormal mole, no jaundice, and no rashes. He reports no loss of consciousness, no weakness, no numbness, no seizure s, no dizziness, and no headaches. He reports no fatigue. He reports no runny nose, no sinus pressure, no itching, no hives, and no frequent sneezing. ROS as noted in the HPI Physical Exam Patient is a 76-year-old male. Constitutional: General Appearance healthy-appearing and obese. Level of Distress NAD. Ambulation ambulating normally. Cardiovascular: Apical Impulse not displaced or no thrill. Heart Auscultation normal s1 and s2, no rubs or gallops, and RRR and murmur (good prosthetic heart sounds). Arterial Pulses no abdominal aorta bruits, femoral bruits, or popliteal bruits and 2+ bilateral, carotid 2+ bilateral, femoral 2+ bilateral, popliteal 2+ bilateral, and dorsalis pedis 2+ bilateral. Edema no varicosities and edema (mild ankle edema). Lungs: Repiratory Effort no dyspnea. Percussion no hyperresonance or dullness or flatness. Auscultation no wheezing, rhonchi, or rales / crackles and breathing sounds normal, good air movement, and CTA except as noted. Abdomen: Bowl Sounds normal. Inspectio n and Palpation no tenderness, guarding, masses, or rebound tenderness and soft and non-distended. Liver non-tender and no HISTORY AND PHYSICAL [id number] LIBERTY BIRMINGHAM JR hepatomegaly. Spleen non-tender and no splenomegaly. Hernia none palpable. Musculoskeletal System: Gait And Stance normal gait and stance. Digits and Nails normal nails and no cyanosis. Neurologic: Cranial Nerves grossly intact. Reflexes DTRs 2+ bilaterally throughout. Sensation grossly intact. Lymph Nodes: Lymph Nodes no cervical LAD, supraclavicular LAD, axillary LAD, or inguinal LAD. Eyes: Lids and Conjunctivae no discharge or pallor and non-injected. Pupils PERRLA. Cornea grossly intact. EOM EOMI. Lens clear. Sclerae non-icteric. Neck: Neck no masses or enlarged lymph nodes and supple, trachea midline, and carotid bruits (high-pitched left carotid bruit). Thyroid no enlargement or nodules and non-tender. Skin: Inspection and Palpation no rash, lesions, ulcers, jaundice, or abnormal nevi. Assessment / Plan severe left internal carotid artery stenosis 1. Carotid artery stenosis - Bilateral I65.29: Occlusion and stenosis of unspecified carotid artery CAROTID STENOSIS: CARE INSTRUCTIONS Discussion Notes severe left internal carotid artery stenosis of the bulb I have discussed his disease process with him and his in detail as well as the alternative methods of treatment. We discussed left carotid endarterectomy including the expected benefits and risk of bleeding including bleeding, infection, stroke, , and the imponderab les. He understands all of the above and wishes to proceed with planned surgery DEVON PARIKH MD at 1311 CC: [id number] DICTATION DATE: 04/09/17 1340 TALENT BUYER: GIO 04/14/17 1138 PRE IN [facility] [address] [place] [address]
[~2017-04-20 05:00] MED LIST changes: +NITRO-DUR0.4 MG TRANSDERM; +PEPCID AC20 MG PO
[2017-04-21] VITALS (32 sets, daily range): BP systolic 97–162; BP diastolic 38–83; Ht 177.8 cm; Wt 119.1 kg
[2017-04-22] VITALS (36 sets, daily range): BP systolic 115–165; BP diastolic 40–79
[2017-04-22 06:28] LABS: HEMATOCRIT 33.3 % (42.0-54.0); HEMOGLOBIN 10.6 g/dL (13.5-17.5); MCH 30.5 pg (26.0-34.0); MCHC 31.8 g/dL (31.0-37.0); MCV 95.7 fL (80.0-100.0); MEAN PLATELET VOLUME 9.1 fL (7.4-10.4); RBC 3.48 10x6/uL (4.20-6.10); RDW 13.5 % (11.5-14.5); WBC 10.1 10x3/uL (4.8-10.8)
[2017-04-22 06:50] LABS: ALBUMIN 3.2 g/dL (3.4-5.0); ANION GAP 14.6 mmol/L (8-16); BILIRUBIN - TOTAL 0.44 mg/dL (0.2-1.3); CALCIUM 8.8 mg/dL (8.5-10.1); CARBON DIOXIDE 24.5 mmol/L (21.0-32.0); CREATININE - SERUM 2.5 mg/dL (0.6-1.3); POTASSIUM - SERUM 5.1 mmol/L (3.5-5.1)
[2017-04-23] VITALS (19 sets, daily range): BP systolic 94–149; BP diastolic 42–78
[2017-04-23 06:27] LABS: HEMATOCRIT 31.9 % (42.0-54.0); HEMOGLOBIN 10.4 g/dL (13.5-17.5); MCHC 32.6 g/dL (31.0-37.0); MCV 94.9 fL (80.0-100.0); MEAN PLATELET VOLUME 9.4 fL (7.4-10.4); RBC 3.36 10x6/uL (4.20-6.10); RDW 13.5 % (11.5-14.5)
[2017-04-23 06:28] LABS: WBC 17.5 10x3/uL (4.8-10.8)
[2017-04-23 06:45] LABS: ALBUMIN 3.1 g/dL (3.4-5.0); ANION GAP 14.7 mmol/L (8-16); BILIRUBIN - TOTAL 0.44 mg/dL (0.2-1.3); CALCIUM 8.6 mg/dL (8.5-10.1); CARBON DIOXIDE 25.4 mmol/L (21.0-32.0); CREATININE - SERUM 2.5 mg/dL (0.6-1.3); POTASSIUM - SERUM 5.1 mmol/L (3.5-5.1)
[2017-04-24] VITALS (24 sets, daily range): BP systolic 77–155; BP diastolic 25–78
[2017-04-24 07:00] LABS: HEMATOCRIT 31.6 % (42.0-54.0); HEMOGLOBIN 10.2 g/dL (13.5-17.5); MCHC 32.3 g/dL (31.0-37.0); MEAN PLATELET VOLUME 9.4 fL (7.4-10.4); RBC 3.29 10x6/uL (4.20-6.10); RDW 13.5 % (11.5-14.5)
[2017-04-24 07:05] LABS: WBC 11.4 10x3/uL (4.8-10.8)
[2017-04-24 07:21] LABS: ALBUMIN 3.1 g/dL (3.4-5.0); BILIRUBIN - TOTAL 0.49 mg/dL (0.2-1.3); CALCIUM 8.5 mg/dL (8.5-10.1); CARBON DIOXIDE 26.8 mmol/L (21.0-32.0); CREATININE - SERUM 2.1 mg/dL (0.6-1.3); POTASSIUM - SERUM 4.8 mmol/L (3.5-5.1); PROTEIN - SERUM 6.8 g/dL (6.4-8.2)
[2017-04-25] VITALS (20 sets, daily range): BP systolic 102–160; BP diastolic 47–71
[2017-04-26] VITALS (10 sets, daily range): BP systolic 129–161; BP diastolic 43–74
[2017-04-26 05:53] LABS: HEMATOCRIT 33.4 % (42.0-54.0); HEMOGLOBIN 10.8 g/dL (13.5-17.5); MCH 30.9 pg (26.0-34.0); MCHC 32.3 g/dL (31.0-37.0); MCV 95.4 fL (80.0-100.0); MEAN PLATELET VOLUME 9.5 fL (7.4-10.4); RBC 3.5 10x6/uL (4.20-6.10); RDW 13.3 % (11.5-14.5); WBC 8.8 10x3/uL (4.8-10.8)
[2017-04-26 06:12] LABS: ALBUMIN 3.1 g/dL (3.4-5.0); ANION GAP 9.8 mmol/L (8-16); BILIRUBIN - TOTAL 0.6 mg/dL (0.2-1.3); CALCIUM 8.8 mg/dL (8.5-10.1); CARBON DIOXIDE 28.6 mmol/L (21.0-32.0); CREATININE - SERUM 1.9 mg/dL (0.6-1.3); POTASSIUM - SERUM 4.4 mmol/L (3.5-5.1); PROTEIN - SERUM 6.5 g/dL (6.4-8.2)
[2017-04-26] MEDS ORDERED: LOVENOX40 MG/0.4 SC (08:18)
[2017-04-26] MEDS ORDERED: COZAAR50 MG PO (08:19)
[2017-04-26] MEDS ORDERED: ULTRAM50 MG PO (08:19)
[2017-04-26] MEDS ORDERED: METAMUCIL PACKE1 PKT PO (08:20)
== END 2017-04-26 13:00 | DRG 37 ==
LOC: D.SDCHOLD 05:00 → D.CVICU 05:00 → D.SDCHOLD 07:30 → D.CVICU 10:18
PROVIDERS: Internal Medicine Cardiovascular Disease
PROC: 03UL0JZ Supplement Left Internal Carotid Artery with Synthetic Substitute, Open Approach (ICD-10-PCS; 2017-04-20)
PROC: 03CL0ZZ Extirpation of Matter from Left Internal Carotid Artery, Open Approach (ICD-10-PCS; principal; 2017-04-20 07:30)
DX: I65.23 Occlusion and stenosis of bilateral carotid arteries (principal); I63.9 Cerebral infarction, unspecified; G72.81 Critical illness myopathy; R47.81 Slurred speech; I25.118 Atherosclerotic heart disease of native coronary artery with other forms of angina pectoris; F17.200 Nicotine dependence, unspecified, uncomplicated; E11.22 Type 2 diabetes mellitus with diabetic chronic kidney disease; I12.9 Hypertensive chronic kidney disease with stage 1 through stage 4 chronic kidney disease, or unspecified chronic kidney disease; N18.3 Chronic kidney disease, stage 3 (moderate); E78.5 Hyperlipidemia, unspecified; E66.9 Obesity, unspecified; Z68.38 Body mass index [BMI] 38.0-38.9, adult

== ENCOUNTER 2017-04-26 13:50 | Inpatient (IN) | payer MEDICARE, BC ==
[~2017-04-26] VITALS: Ht 177.8 cm; Wt 113.4 kg
--- NOTE | ~2017-04-26 | RHP ---
PATIENT: LIBERTY BIRMINGHAM JR MEDICAL RECORD: [id number] ACCOUNT: [id number] LOCATION:[id number] : 40 ADMISSION DATE: 04/26/17 REHABILITATION HISTORY AND PHYSICAL EXAMINATION POST ADMISSION PHYSICIAN EXAMINATION DATE OF ADMISSION TO THE REHAB: 04/26/2017. ADMITTING DIAGNOSES: Critical illness myopathy. HISTORY OF PRESENT ILLNESS: The patient is a 76-year-old gentleman admitted to the rehab with a neurological condition. He was diagnosed with critical illness myopathy. He was admitted to the hospital for left carotid endarterectomy, stable angina, was seen by Dr. Vargas, who felt that there was an intervention that may help his coronary artery disease. Postoperatively he had reversible ischemic neurological deficit that is resolving. He would definitely benefit from inpatient rehab prior to discharge home. He has chronic renal failure. He is returning to his baseline status. He will be followed closely for coronary artery disease. Plan coronary intervention in the future. Prior to his admission, Mr. Birmingham was completely independent with ADLs and ambulation, lived with his . He does have a walker and a cane, but does not use them. He is currently total assist with ambulation using a rolling walker. He is max assist with ADLs and dysphasia and dysarthria requiring speech therapy and has noted proximal muscle weakness that will benefit from physical therapy. COMORBIDITIES: In this patient include hypertension, status post carotid endarterectomy, critical left internal carotid artery stenosis, acute reversible ischemic neurological deficit, chronic renal failure stage III, diabetes, hyperlipidemia, history of stroke, proximal muscle weakness, angina pectoris, and stenosis of his right internal carotid artery. PAST MEDICAL HISTORY: Significant for carotid artery stenosis, elevated BUN, gastroesophageal reflux disease, diabetes, atherosclerosis, hyperlipidemia, hypertension. PAST SURGICAL HISTORY: Includes bariatric surgery. He has had a carotid endarterectomy. He has had a laparoscopic surgery. ALLERGIES: No known drug allergies. CURRENT MEDICATIONS: Include isosorbide 90 mg b.i.d., Victoza 1.2 mg subq daily, Metamucil 1 packet daily, Synthroid 75 mcg daily, multivitamin daily, Lovenox 40 mg subq daily, citalopram 20 mg daily, Plavix 75 mg daily, aspirin chewable 81 mg daily. He is on a low resistant sliding scale with insulin. He is on Nitro-Dur patch 0.4 mg daily. He is on Ultram 50 mg q.4 hours p.r.n., Ranexa 1000 mg b.i.d., Crestor 20 mg q.h.s., Nitrostat p.r.n., Bystolic 10 mg b.i.d., losartan 100 mg q.h.s., Lantus 30 units daily. He is on Pepcid 20 mg b.i.d., and polyethylene glycol 17 grams in 8 ounces of water daily. HABITS: No alcohol or tobacco use. FAMILY HISTORY: Noncontributory. SOCIAL HISTORY: The patient hopes to return back to home and get back to his prior level of functioning. HISTORY AND PHYSICAL [id number] LIBERTY BIRMINGHAM JR REVIEW OF SYSTEMS: GENERAL: Does complain of weakness and fatigue. HEENT: Denies cold, cough, or congestion. CARDIOVASCULAR: Denies chest pain. PHYSICAL EXAMINATION: VITAL SIGNS: Stable, afebrile. GENERAL: An obese gentleman in no acute distress, alert upon exam. HEENT: Normocephalic and atraumatic. Mucosa moist. NECK: Supple. Surgical scar looks good. LUNGS: Clear at this time. HEART: Regular rate and rhythm. ABDOMEN: Benign. EXTREMITIES: No clubbing, cyanosis or edema. NEUROLOGIC: Intact. LABORATORY DATA: His white count is 9.3, H&H 11.4 and 34.2 and platelet count is 153. His sodium is 140, potassium 4.1, BUN and creatinine of 33 and 1.7, blood sugar is noted to be 116. ASSESSMENT: This is a 76-year-old gentleman who is admitted to the rehab with a working diagnosis of critical illness myopathy. The patient has potential to make improvement. We instituted the following multidisciplinary therapies including to, but not limited to physical, occupational, respiratory, speech, nutritional services, prosthetics and orthotics. Given his complex medical condition and risk for more complications, rehabilitation services cannot be provided at a low level of care such as a group home facility. PLAN: 1. Admit to [facility] rehab for intensive inpatient therapy to include the following disciplines: A. Physical therapy to improve gait, all transfer skills and bed mobility to a modified independent level. B. Occupational therapy to improve activities of daily living to a modified independent level. C. Case management to assist with discharge planning and placement options. D. Nutrition to assist with nutritional needs. E. Rehabilitation nursing to assist in monitoring the patient's underlying medical condition and to assist with any type of bowel or bladder management. 2. The patient's current medication and medical care will be continued. 3. The patient will be placed on standard fall precautions. 4. The patient's estimated length of stay is approximately 7 to 10 days. 5. Discuss this patient during care team staff meeting this week. TRANSINT:[id number] Voice Confirmation ID: [id number] DOCUMENT ID: [id number] MARJAN notes whether there has been none or any medical/functional change since admission: - No change since prescreen. MARJAN attests patient continues to be appropriate for IRF: - Continues to be appropriate. HISTORY AND PHYSICAL [id number] LIBERTY BIRMINGHAM JR, SCOTT MD at 1739 CC: [id number] DICTATION DATE: 04/27/17 1047 MACHINE SPLITTER: 04/27/17 1129 ADM IN [place] [id number] [place] [address]
[~2017-04-26 13:50] MED LIST changes: +LOVENOX40 MG/0.4 SC; +METAMUCIL PACKE1 PKT PO; +ULTRAM50 MG PO
[2017-04-26 15:05] VITALS: BP 116/59; BMI 35.9
[2017-04-26 19:10] VITALS: BP 137/55
[2017-04-27 07:14] LABS: HEMATOCRIT 34.2 % (42.0-54.0); HEMOGLOBIN 11.4 g/dL (13.5-17.5); LYMPHOCYTES 13.7 % (15-50); MCH 31.1 pg (26.0-34.0); MCHC 33.3 g/dL (31.0-37.0); MEAN PLATELET VOLUME 9.1 fL (7.4-10.4); NEUTROPHILS 72.5 % (40-80); PLATELET COUNT 153 10x3/uL (130-400); RBC 3.67 10x6/uL (4.20-6.10); WBC 9.3 10x3/uL (4.8-10.8)
[2017-04-27 07:16] LABS: ANION GAP 10.3 mmol/L (8-16); CALCIUM 8.9 mg/dL (8.5-10.1); CARBON DIOXIDE 28.8 mmol/L (21.0-32.0); CREATININE - SERUM 1.7 mg/dL (0.6-1.3); POTASSIUM - SERUM 4.1 mmol/L (3.5-5.1)
[2017-04-27 07:17] LABS: MCV 93.2 fL (80.0-100.0)
[2017-04-27 08:16] VITALS: BP 117/66
[2017-04-27 11:08] VITALS: BMI 35.8
[2017-04-27 15:29] VITALS: BP 140/59
[2017-04-27 16:32] LABS: CKMB 0.9 U/L (0.0-3.6); CREATINE KINASE 165 UL (21-232)
[2017-04-27 16:34] LABS: TROPONIN-I 0.074 ng/mL (0.000-0.060)
[2017-04-27 19:15] VITALS: BP 140/49
[2017-04-27 22:15] LABS: CKMB 1.3 U/L (0.0-3.6); CREATINE KINASE 176 UL (21-232); TROPONIN-I 0.069 ng/mL (0.000-0.060)
[2017-04-28 06:48] LABS: BASOPHILS 0.1 % (0-2); EOSINOPHILS 4.5 % (0-7); HEMATOCRIT 33.8 % (42.0-54.0); HEMOGLOBIN 10.9 g/dL (13.5-17.5); IMMATURE GRANULOCYTES 0.3 % (0-5); LYMPHOCYTES 20.5 % (15-50); MCH 30.7 pg (26.0-34.0); MCHC 32.2 g/dL (31.0-37.0); MEAN PLATELET VOLUME 9.1 fL (7.4-10.4); NEUTROPHILS 63.6 % (40-80); PLATELET COUNT 168 10x3/uL (130-400); RBC 3.55 10x6/uL (4.20-6.10); RDW 13.1 % (11.5-14.5); WBC 8.8 10x3/uL (4.8-10.8)
[2017-04-28 07:02] LABS: MCV 95.2 fL (80.0-100.0)
[2017-04-28 07:45] LABS: CALC OSMOLALITY 285 mosm/kg (275-300); CALCIUM 8.5 mg/dL (8.5-10.1); CHLORIDE - SERUM 105 mmol/L (98-107); CKMB 0.9 U/L (0.0-3.6); CREATINE KINASE 117 UL (21-232); CREATININE - SERUM 1.7 mg/dL (0.6-1.3); GLUCOSE 114 mg/dL (74-106); POTASSIUM - SERUM 4.1 mmol/L (3.5-5.1); SODIUM 140 mmol/L (136-145); UREA NITROGEN 29 mg/dL (7-18); eGFR NON AFRICAN AMERICAN 42 mL/min (90-120)
[2017-04-28 07:57] LABS: TROPONIN-I 0.064 ng/mL (0.000-0.060)
[2017-04-28 08:07] VITALS: BP 159/65
[2017-04-28 18:59] VITALS: BP 141/59
[2017-04-29 06:17] LABS: MCH 30.9 pg (26.0-34.0); MCHC 32.4 g/dL (31.0-37.0); MCV 95.4 fL (80.0-100.0); MEAN PLATELET VOLUME 9.6 fL (7.4-10.4); RBC 3.88 10x6/uL (4.20-6.10); RDW 13.2 % (11.5-14.5); WBC 10.9 10x3/uL (4.8-10.8)
[2017-04-29 07:19] LABS: ALBUMIN 3.5 g/dL (3.4-5.0); ANION GAP 14.6 mmol/L (8-16); BILIRUBIN - TOTAL 0.5 mg/dL (0.2-1.3); CALCIUM 8.9 mg/dL (8.5-10.1); CARBON DIOXIDE 26.5 mmol/L (21.0-32.0); CREATININE - SERUM 1.8 mg/dL (0.6-1.3); POTASSIUM - SERUM 4.1 mmol/L (3.5-5.1); PROTEIN - SERUM 7.6 g/dL (6.4-8.2)
[2017-04-29 08:00] VITALS: BP 169/69
[2017-04-29 22:09] VITALS: BP 152/67
[2017-04-30 06:24] LABS: BASOPHILS 0.3 % (0-2); EOSINOPHILS 2.9 % (0-7); HEMATOCRIT 33.8 % (42.0-54.0); HEMOGLOBIN 10.9 g/dL (13.5-17.5); IMMATURE GRANULOCYTES 0.3 % (0-5); LYMPHOCYTES 11.4 % (15-50); MCH 30.7 pg (26.0-34.0); MCHC 32.2 g/dL (31.0-37.0); MCV 95.2 fL (80.0-100.0); MEAN PLATELET VOLUME 9.7 fL (7.4-10.4); MONOCYTES 10.9 % (2-11); NEUTROPHILS 74.2 % (40-80); PLATELET COUNT 206 10x3/uL (130-400); RBC 3.55 10x6/uL (4.20-6.10)
[2017-04-30 06:26] LABS: ANION GAP 11.5 mmol/L (8-16); CARBON DIOXIDE 27.5 mmol/L (21.0-32.0); CREATININE - SERUM 1.9 mg/dL (0.6-1.3)
[2017-04-30 07:00] LABS: CALCIUM 8.5 mg/dL (8.5-10.1)
[2017-04-30 08:29] VITALS: BP 170/54
[2017-04-30 20:34] VITALS: BP 126/102
[2017-05-01 07:55] VITALS: BP 132/74
[2017-05-01 13:47] LABS: APPEARANCE CLEAR (CLEAR); BILIRUBIN NEGATIVE (NEGATIVE); COLOR DK YELLOW (YELLOW); GLUCOSE NEGATIVE (NEGATIVE); KETONE NEGATIVE (NEGATIVE); NITRITE NEGATIVE (NEGATIVE); PROTEIN 2+ mg/dL (NEGATIVE); UROBILINOGEN NORMAL (NORMAL)
[2017-05-01 13:48] LABS: BACTERIA MODERATE /hpf (NONE SEEN); EPITHELIAL CELLS 0-5 /hpf (0-5); HYALINE CAST 0-5 /lpf (NONE SEEN); MUCUS >1+ /lpf (NONE SEEN); RED CELLS - URINE 0-5 /hpf (0-5); WHITE CELLS - URINE 0-5 /hpf (0-5)
[2017-05-02 00:28] VITALS: BP 163/60
[2017-05-02 08:00] VITALS: BP 168/64
[2017-05-02] MEDS ORDERED: VESICARE10 MG PO (11:26)
[2017-05-02] MEDS ORDERED: ISOSORBIDE MON120 M1 PO (14:10)
[2017-05-05 19:54] VITALS: BP 149/59
[2017-05-06 07:43] VITALS: BP 149/64
[2017-05-06 19:00] VITALS: BP 133/80
[2017-05-07 07:00] VITALS: BP 133/80
[2017-05-07 07:07] LABS: BASOPHILS 0.4 % (0-2); EOSINOPHILS 4.3 % (0-7); HEMATOCRIT 33.4 % (42.0-54.0); HEMOGLOBIN 10.6 g/dL (13.5-17.5); IMMATURE GRANULOCYTES 0.4 % (0-5); LYMPHOCYTES 20.7 % (15-50); MCH 30.3 pg (26.0-34.0); MCHC 31.7 g/dL (31.0-37.0); MCV 95.4 fL (80.0-100.0); MEAN PLATELET VOLUME 9.5 fL (7.4-10.4); MONOCYTES 10.5 % (2-11); NEUTROPHILS 63.7 % (40-80); PLATELET COUNT 190 10x3/uL (130-400); RDW 13.2 % (11.5-14.5); WBC 8.1 10x3/uL (4.8-10.8)
[2017-05-07 07:15] LABS: ALBUMIN 3.1 g/dL (3.4-5.0); ANION GAP 11.8 mmol/L (8-16); BILIRUBIN - TOTAL 0.4 mg/dL (0.2-1.3); CALCIUM 8.7 mg/dL (8.5-10.1); CARBON DIOXIDE 26.4 mmol/L (21.0-32.0); CREATININE - SERUM 2.4 mg/dL (0.6-1.3); POTASSIUM - SERUM 4.2 mmol/L (3.5-5.1); PROTEIN - SERUM 6.6 g/dL (6.4-8.2)
[2017-05-07 07:40] VITALS: BP 145/85
[2017-05-07 09:11] VITALS: BP 146/55
[2017-05-08 08:33] VITALS: BP 142/66
[2017-05-08 20:53] VITALS: BP 181/61
[2017-05-09 07:57] VITALS: BP 113/53
[2017-05-09 22:24] VITALS: BP 135/62
[2017-05-10 06:34] LABS: BASOPHILS 0.3 % (0-2); EOSINOPHILS 1.6 % (0-7); HEMATOCRIT 32.7 % (42.0-54.0); HEMOGLOBIN 10.5 g/dL (13.5-17.5); IMMATURE GRANULOCYTES 0.5 % (0-5); LYMPHOCYTES 11.8 % (15-50); MCH 30.2 pg (26.0-34.0); MCHC 32.1 g/dL (31.0-37.0); MEAN PLATELET VOLUME 9.8 fL (7.4-10.4); MONOCYTES 8.9 % (2-11); NEUTROPHILS 76.9 % (40-80); PLATELET COUNT 218 10x3/uL (130-400); RBC 3.48 10x6/uL (4.20-6.10); RDW 13.4 % (11.5-14.5); WBC 10.6 10x3/uL (4.8-10.8)
[2017-05-10 06:39] LABS: ANION GAP 16.9 mmol/L (8-16); CARBON DIOXIDE 23.6 mmol/L (21.0-32.0); CREATININE - SERUM 2.7 mg/dL (0.6-1.3); POTASSIUM - SERUM 4.5 mmol/L (3.5-5.1)
[2017-05-10 06:41] LABS: CALCIUM 9.2 mg/dL (8.5-10.1)
[2017-05-10 07:46] VITALS: BP 135/58
[2017-05-10 20:00] VITALS: BP 148/50
[2017-05-11 08:49] VITALS: BP 148/47
[2017-05-11 09:27] VITALS: Ht 177.8 cm; Wt 113.4 kg
[2017-05-12 01:20] VITALS: BP 152/51
[2017-05-12 09:11] VITALS: BP 129/55
[2017-05-13 00:29] VITALS: BP 136/45
[2017-05-13 08:00] VITALS: BP 121/61
== END 2017-05-13 11:40 | DRG 981 ==
LOC: D.REHAB 13:50
PROVIDERS: Emergency Medicine; Internal Medicine Cardiovascular Disease
PROC: 027236Z Dilation of Coronary Artery, Three Arteries with Three Drug-eluting Intraluminal Devices, Percutaneous Approach (ICD-10-PCS; principal; 2017-05-03)
PROC: B2111ZZ Fluoroscopy of Multiple Coronary Arteries using Low Osmolar Contrast (ICD-10-PCS; 2017-05-03)
DX: G72.81 Critical illness myopathy (principal); I63.9 Cerebral infarction, unspecified; I12.9 Hypertensive chronic kidney disease with stage 1 through stage 4 chronic kidney disease, or unspecified chronic kidney disease; E11.22 Type 2 diabetes mellitus with diabetic chronic kidney disease; N18.3 Chronic kidney disease, stage 3 (moderate); Z79.4 Long term (current) use of insulin; I25.119 Atherosclerotic heart disease of native coronary artery with unspecified angina pectoris; E78.5 Hyperlipidemia, unspecified; E11.69 Type 2 diabetes mellitus with other specified complication; I65.21 Occlusion and stenosis of right carotid artery; I65.22 Occlusion and stenosis of left carotid artery; N32.89 Other specified disorders of bladder; R41.0 Disorientation, unspecified

== ENCOUNTER 2017-05-31 23:21 | Inpatient (IN) | payer MEDICARE, BC ==
[~2017-05-31] VITALS: Ht 177.8 cm; Wt 103.0 kg
[~2017-05-31 23:21] MED LIST changes: +ISOSORBIDE MON120 M1 PO; +VESICARE10 MG PO
[2017-06-01] VITALS (7 sets, daily range): BP systolic 91–147; BP diastolic 46–67; Ht 177.8 cm; Wt 103.0 kg
[2017-06-01 00:20] LABS: BASOPHILS 0.4 % (0-2); EOSINOPHILS 0.8 % (0-7); HEMATOCRIT 34.6 % (42.0-54.0); IMMATURE GRANULOCYTES 0.5 % (0-5); MCH 29.6 pg (26.0-34.0); MCHC 31.8 g/dL (31.0-37.0); MCV 93.3 fL (80.0-100.0); NEUTROPHILS 77.3 % (40-80); PLATELET COUNT 173 10x3/uL (130-400); RBC 3.71 10x6/uL (4.20-6.10); RDW 13.6 % (11.5-14.5); WBC 10.9 10x3/uL (4.8-10.8)
[2017-06-01 00:35] LABS: INR 1.16 (0.85-1.17); PROTIME 14.4 SECONDS (11.6-15.0)
[2017-06-01 00:36] LABS: APTT 29.8 SECONDS (22.8-39.4)
[2017-06-01 00:43] LABS: ANION GAP 12.3 mmol/L (8-16); BILIRUBIN - TOTAL 0.5 mg/dL (0.2-1.3); CREATININE - SERUM 3.2 mg/dL (0.6-1.3); POTASSIUM - SERUM 5.3 mmol/L (3.5-5.1); PROTEIN - SERUM 7.1 g/dL (6.4-8.2)
[2017-06-02] VITALS (7 sets, daily range): BP systolic 97–173; BP diastolic 51–80
[2017-06-02 05:05] LABS: BASOPHILS 0.3 % (0-2); EOSINOPHILS 2.1 % (0-7); HEMATOCRIT 30.1 % (42.0-54.0); HEMOGLOBIN 9.4 g/dL (13.5-17.5); IMMATURE GRANULOCYTES 0.6 % (0-5); LYMPHOCYTES 24.4 % (15-50); MCH 29.3 pg (26.0-34.0); MCHC 31.2 g/dL (31.0-37.0); MCV 93.8 fL (80.0-100.0); MEAN PLATELET VOLUME 9.2 fL (7.4-10.4); MONOCYTES 9.5 % (2-11); NEUTROPHILS 63.1 % (40-80); PLATELET COUNT 144 10x3/uL (130-400); RBC 3.21 10x6/uL (4.20-6.10); RDW 13.7 % (11.5-14.5)
[2017-06-02 05:33] LABS: ALBUMIN 2.5 g/dL (3.4-5.0); ANION GAP 13.9 mmol/L (8-16); BILIRUBIN - TOTAL 0.5 mg/dL (0.2-1.3); CALCIUM 8.9 mg/dL (8.5-10.1); CARBON DIOXIDE 22.7 mmol/L (21.0-32.0); CREATININE - SERUM 2.8 mg/dL (0.6-1.3); POTASSIUM - SERUM 4.6 mmol/L (3.5-5.1); PROTEIN - SERUM 5.9 g/dL (6.4-8.2)
[2017-06-03] VITALS: BP 147/78
[2017-06-03 04:00] VITALS: BP 154/62
[2017-06-03 08:11] VITALS: BP 115/55
[2017-06-03 09:47] LABS: HEMOGLOBIN 9.6 g/dL (13.5-17.5)
[2017-06-03] MEDS ORDERED: CARAFATE1 G/10 ML PO (10:58)
== END 2017-06-03 14:13 | disposition home health service (06) | DRG 378 ==
LOC: D.ER 23:21 → D.EDHOLD 06-01 01:36 → D.ICU 06-01 01:36 → D.MS 06-01 12:01
PROVIDERS: Family Medicine; Internal Medicine Nephrology
DX: K92.2 Gastrointestinal hemorrhage, unspecified (principal); D62 Acute posthemorrhagic anemia; I69.351 Hemiplegia and hemiparesis following cerebral infarction affecting right dominant side; E11.22 Type 2 diabetes mellitus with diabetic chronic kidney disease; I12.9 Hypertensive chronic kidney disease with stage 1 through stage 4 chronic kidney disease, or unspecified chronic kidney disease; N18.3 Chronic kidney disease, stage 3 (moderate); E78.5 Hyperlipidemia, unspecified; I25.10 Atherosclerotic heart disease of native coronary artery without angina pectoris; I25.2 Old myocardial infarction; Z95.5 Presence of coronary angioplasty implant and graft; Z95.1 Presence of aortocoronary bypass graft